=== PATIENT | female | born 1990 | race African-American/Black ===

== ENCOUNTER 2017-09-16 18:20 | Emergency (ER) | payer SELFPAY ==
[~2017-09-16] VITALS: Ht 160 cm; Wt 90.1 kg
[~2017-09-16 18:20] MED LIST: BCP TD; BUSPAR5 MG PO; NO HOME MEDICATIONS; NORCO 325 MG-51 TAB PO; PEPCID 20MG TAB20 MG PO; TRAZADONE HYDR100 MG PO; ULTRAM 50MG TAB50 MG PO
[2017-09-16 18:23] VITALS: TEMP 98
[2017-09-16] MEDS ORDERED: ATIVAN 1MG T1 MG/TAB PO (20:32)
[2017-09-16 20:35] VITALS: BP 102/87; PULSE 66
== END 2017-09-16 20:40 | disposition home or self-care (01) ==
LOC: COL.ER 18:20
DX: F41.9 Anxiety disorder, unspecified (principal); R07.9 Chest pain, unspecified; Z88.1 Allergy status to other antibiotic agents

== ENCOUNTER → 2020-06-13 | Outpatient (CLI) | payer BC ==
[~2020-06-13] MED LIST changes: +ATIVAN 1MG T1 MG/TAB PO
== END ==
LOC: ZCOL.LAB 21:44
DX: J02.9 Acute pharyngitis, unspecified (principal); R09.89 Other specified symptoms and signs involving the circulatory and respiratory systems; Z20.828 Contact with and (suspected) exposure to other viral communicable diseases